=== PATIENT | female | born 1960 | race Caucasian/White ===

== ENCOUNTER 2021-10-14 18:20 | Emergency (ER) | payer OTHER ==
[~2021-10-14] VITALS: Ht 162.6 cm; Wt 59.0 kg
--- NOTE | ~2021-10-14 | EMS ---
[address] [address] EMS Patient Care Report Name: ELENA ROY Room #: DEP HELEN Vieyra#: [id number] Admission: 10/14/21 Attend Phys: Discharge: 10/14/21 Date of : 64 Report #: [id number] THIS REPORT FOR: //name// Report Transmitted: 10/16/2021 13:00 EMS Care Summary [place], [place]/[facility] Incident [id number] @ 10/14/2021 17:41 Incident Location [address] [place] [address] Patient ELENA ROY Female, 61 Years 1960 Patient Address [facility] [address] [place] [address] Patient History Migraine,Back Pain (Chronic), Patient Allergies Toradol, Patient Medications Tramadol, Chief Complaint Seizure Disposition Transported No Lights/[place] Dispatch Reason Convulsions/Seizure Transported To [facility] Narrative Initially dispatched for seizures. Upon EMS arrival patient was found laying prone on the floor behind the registers at [facility], lethargic, CAOx4. Bystander reported that the patient had been ringing up customers when her left arm began to convulse, then her whole body convulsed, she fell to the floor, and her left [facility] [address] [place] [address] EMS Patient Care Report Name: ELENA ROY Room #: DEP Azalia#: [id number] Admission: 10/14/21 Attend Phys: Discharge: 10/14/21 Date of : 64 Report #: [id number] arm continued to contort and convulse. She stated that this lasted more than a minute. Patient was able to answer questions correctly, but seemed to need a little more time to answer them. She denied any head, neck, or back pain. Patient had a minor abrasion to the right side of her face. She denied any history of seizures. Patient initially stated that she did not wish to go to the hospital. EMS crew explained to her that having never had seizures before, this could be an indicator of something very serious. Patient agreed to transport. She was assisted onto the stretcher, secured, and loaded into the ambulance. case monitor showed Sinus Tachycardia. Patient was transported to [facility] without incident. Full report was given to RN prior to signing this document. Initial Vitals @17:58P: 111,CO: 2,SpO2: 97, @18:00P: 105,R: 18,BP: 101/65,GCS: 15,SpO2: 98,Revised Trauma: 12,VT Suspected: false @17:53P: 116,R: 20,BP: 123/72,Pain: 0/10,GCS: 15,Glucose: 123,SpO2: 95,Revised Trauma: 12, Assessments @17:52MENTAL:Other,SKIN:No Abnormalities,HEENT:Head/Face: ABR,Eyes: No Abnormalities,Neck/Airway: No Abnormalities,LUNG SOUNDS:General: No Abnormalities,Left Upper: No Abnormalities,Right Upper: No Abnormalities,Left Lower: No Abnormalities,Right Lower: No Abnormalities,ABDOMEN:General: No Abnormalities,Left Upper: No Abnormalities,Right Upper: No Abnormalities,Left Lower: No Abnormalities,Right Lower: No Abnormalities,PELVIS//GI:Pelvis GUOther,EXTREMITIES:Left Arm: No Abnormalities,Right Arm: No Abnormalities,Left Leg: No Abnormalities,Right Leg: No Abnormalities,PULSE:NEURO:Other, Impression Seizures Procedures @17:52 ALS Assessment Response: UnchangedSucceeded @17:59 3-Lead ECG Response: UnchangedSucceeded @18:01 IV Therapy - Saline Lock 10cc (18 ga) Site: Forearm-Left Response: UnchangedSucceeded Timeline 17:39,Call Received 17:39,Dispatch Notified 17:41,Dispatched 17:42,En Route 17:50,On Scene 17:52,[place] [id number] EMS Patient Care Report Name: ELENA ROY Room #: [facility] HELEN Vieyra#: [id number] Admission: 10/14/21 Attend Phys: Discharge: 10/14/21 Date of : 64 Report #: [id number] 17:52,ALS Assessment,Response: UnchangedSucceeded, 17:53,BP: 123/72 M,PULSE: 116,RR: 20 R,SPO2: 95 Ox,ETCO2: ,B,PAIN: 0,GCS: 15, 17:58,BP: / M,PULSE: 111,RR: R,SPO2: 97 Ox,ETCO2: ,BG: ,PAIN: ,GCS: , 17:59,3-Lead ECG,Response: UnchangedSucceeded, 18:00,BP: 101/65 M,PULSE: 105,RR: 18 R,SPO2: 98 Ox,ETCO2: ,BG: ,PAIN: ,GCS: 15, 18:01,IV Therapy - Saline Lock 10cc 18 ga Site: Forearm-Left,Response: UnchangedSucceeded, 18:06,Depart Scene 18:12,At Destination 18:20,Call Closed Disclaimer v1.1 Copyright 2020 [employer] This EMS Care Summary contains data elements from the applicable legal record (which may be displayed differently). It is designed to provide pertinent information for the following purposes: continuity of care, clinical quality, and state data reporting. The complete legal record is available to ED staff and administrators of the receiving hospital in [employer] Patient Tracker. All data is provided "as is."
--- NOTE | ~2021-10-14 | EMS ---
[address] [address] EMS Patient Care Report Name: ELENA ROY Room #: DEP HELEN Vieyra#: [id number] Admission: 10/14/21 Attend Phys: Discharge: 10/14/21 Date of : 64 Report #: [id number] THIS REPORT FOR: //name// Report Transmitted: 10/15/2021 08:14 EMS Care Summary [place], [place]/[facility] Incident [id number] @ 10/14/2021 17:41 Incident Location [address] [place] [address] Patient ELENA ROY Female, 61 Years 1960 Patient Address [facility] [address] [place] [address] Patient History Migraine,Back Pain (Chronic), Patient Allergies Toradol, Patient Medications Tramadol, Chief Complaint Seizure Disposition Transported No Lights/[place] Dispatch Reason Convulsions/Seizure Transported To [facility] Narrative Initially dispatched for seizures. Upon EMS arrival patient was found laying prone on the floor behind the registers at [facility], lethargic, CAOx4. Bystander reported that the patient had been ringing up customers when her left arm began to convulse, then her whole body convulsed, she fell to the floor, and her left [facility] [address] [place] [address] EMS Patient Care Report Name: ELENA ROY Room #: DEP Azalia#: [id number] Admission: 10/14/21 Attend Phys: Discharge: 10/14/21 Date of : 64 Report #: [id number] arm continued to contort and convulse. She stated that this lasted more than a minute. Patient was able to answer questions correctly, but seemed to need a little more time to answer them. She denied any head, neck, or back pain. Patient had a minor abrasion to the right side of her face. She denied any history of seizures. Patient initially stated that she did not wish to go to the hospital. EMS crew explained to her that having never had seizures before, this could be an indicator of something very serious. Patient agreed to transport. She was assisted onto the stretcher, secured, and loaded into the ambulance. riprap man showed Sinus Tachycardia. Patient was transported to [facility] without incident. Full report was given to RN prior to signing this document. Initial Vitals @17:58P: 111,CO: 2,SpO2: 97, @18:00P: 105,R: 18,BP: 101/65,GCS: 15,SpO2: 98,Revised Trauma: 12,MA Suspected: false @17:53P: 116,R: 20,BP: 123/72,Pain: 0/10,GCS: 15,Glucose: 123,SpO2: 95,Revised Trauma: 12, Assessments @17:52MENTAL:Other,SKIN:No Abnormalities,HEENT:Head/Face: ABR,Eyes: No Abnormalities,Neck/Airway: No Abnormalities,LUNG SOUNDS:General: No Abnormalities,Left Upper: No Abnormalities,Right Upper: No Abnormalities,Left Lower: No Abnormalities,Right Lower: No Abnormalities,ABDOMEN:General: No Abnormalities,Left Upper: No Abnormalities,Right Upper: No Abnormalities,Left Lower: No Abnormalities,Right Lower: No Abnormalities,PELVIS//GI:Pelvis GUOther,EXTREMITIES:Left Arm: No Abnormalities,Right Arm: No Abnormalities,Left Leg: No Abnormalities,Right Leg: No Abnormalities,PULSE:NEURO:Other, Impression Seizures Procedures @17:52 ALS Assessment Response: UnchangedSucceeded @17:59 3-Lead ECG Response: UnchangedSucceeded @18:01 IV Therapy - Saline Lock 10cc (18 ga) Site: Forearm-Left Response: UnchangedSucceeded Timeline 17:39,Call Received 17:39,Dispatch Notified 17:41,Dispatched 17:42,En Route 17:50,On Scene 17:52,[place] [id number] EMS Patient Care Report Name: ELENA ROY Room #: [facility] HELEN Vieyra#: [id number] Admission: 10/14/21 Attend Phys: Discharge: 10/14/21 Date of : 64 Report #: [id number] 17:52,ALS Assessment,Response: UnchangedSucceeded, 17:53,BP: 123/72 M,PULSE: 116,RR: 20 R,SPO2: 95 Ox,ETCO2: ,B,PAIN: 0,GCS: 15, 17:58,BP: / M,PULSE: 111,RR: R,SPO2: 97 Ox,ETCO2: ,BG: ,PAIN: ,GCS: , 17:59,3-Lead ECG,Response: UnchangedSucceeded, 18:00,BP: 101/65 M,PULSE: 105,RR: 18 R,SPO2: 98 Ox,ETCO2: ,BG: ,PAIN: ,GCS: 15, 18:01,IV Therapy - Saline Lock 10cc 18 ga Site: Forearm-Left,Response: UnchangedSucceeded, 18:06,Depart Scene 18:12,At Destination 18:20,Call Closed Disclaimer v1.1 Copyright 2020 [employer] This EMS Care Summary contains data elements from the applicable legal record (which may be displayed differently). It is designed to provide pertinent information for the following purposes: continuity of care, clinical quality, and state data reporting. The complete legal record is available to ED staff and administrators of the receiving hospital in [employer]'s Patient Tracker. All data is provided "as is."
[2021-10-14] MEDS ORDERED: ULTRAM 50MG TAB50 MG PO (18:40)
[2021-10-14 18:43] LABS: ABSOLUTE NEUTROPHILS 6.6 thou/uL (1.4-8.2); BASOPHILS 0.4 % (0.0-2.0); EOSINOPHILS 0.8 % (0.0-3.0); HEMATOCRIT 35.8 % (37.0-47.0); HEMOGLOBIN 11.8 gm/dL (12.0-15.0); LYMPHOCYTES 25.1 % (24.0-44.0); MCH 30.7 pg (26.0-34.0); MCHC 32.9 g/dL (28.0-37.0); MCV 93.2 fL (80.0-100.0); MONOCYTES 7.1 % (1.0-8.0); PLATELET COUNT 325 thou/uL (150-400); POLYS 66.6 % (36.0-66.0); RBC 3.84 mil/uL (4.20-5.00); RDW 13.3 % (10.5-14.5)
[2021-10-14 18:53] LABS: CALCIUM 9.2 mg/dL (8.5-10.1); CREATININE 1.1 mg/dL (0.6-1.0); POTASSIUM 3.2 mmol/L (3.5-5.1)
[2021-10-14] MEDS ORDERED: NAPROSYN500 MG PO ×2 (19:39→21:06)
[2021-10-14 21:12] VITALS: BP 117/70
--- NOTE | 2021-10-15 07:18 | EKG ---
[place] [address] [facility] [place] [address] ELECTROCARDIOGRAM REPORT Name: ELENA ROY Valentín Room [facility]: [facility] [id number] Admission: 10/14/21 Attend Phys: Discharge: 10/14/21 Date of : 64 Report #: [id number] [facility] ED Test Date: 2021-10-14 Test Time: 18:42:16 Pat Name: ELENA ROY Department: Room: Gender: F Operator Supply: claudio : 1960 Requested By: Matthew Camacho Order Number: [id number] MD: Eliu Willis Measurements Intervals [place] Rate: 86 P: 54 MI: 156 QRS: 70 QRSD: 112 T: 45 QT: 427 QTc: 511 Interpretive Statements Sinus rhythm Probable left atrial enlargement Borderline intraventricular conduction delay Minimal ST depression, diffuse leads Prolonged QT interval Baseline wander in lead(s) III No previous ECG available for comparison Electronically Signed On 10-15-2021 7:18:25 FACILITIES PAINTER by Eliu Willis [email or web address] <ELECTRONICALLY SIGNED> By: Eliu Willis MD, [facility] 10/15/21717 41 41 Eliu Willis MD, FACC /EPI
== END 2021-10-14 21:05 | disposition home or self-care (01) ==
LOC: ER 18:20
PROVIDERS: Emergency Medicine
DX: S42.001A Fracture of unspecified part of right clavicle, initial encounter for closed fracture (principal); S00.81XA Abrasion of other part of head, initial encounter; F17.210 Nicotine dependence, cigarettes, uncomplicated; R55 Syncope and collapse; W18.30XA Fall on same level, unspecified, initial encounter; Y93.01 Activity, walking, marching and hiking; Y92.69 Other specified industrial and construction area as the place of occurrence of the external cause; Y99.9 Unspecified external cause status